=== PATIENT | female | born 1990 | race Caucasian/White ===

== ENCOUNTER 2018-02-24 10:26 | Outpatient (CLI) | END 2018-02-24 13:05 | disposition home or self-care (01) ==

== ENCOUNTER 2018-03-19 20:26 | Outpatient (CLI) | END 2018-03-19 23:13 | disposition home or self-care (01) ==

== ENCOUNTER 2018-06-22 22:28 | Outpatient (CLI) | END 2018-06-23 03:02 | disposition home or self-care (01) ==

== ENCOUNTER 2018-06-23 12:12 | Inpatient (IN) | END 2018-06-26 18:20 | disposition home or self-care (01) | DRG 766 ==

== ENCOUNTER 2018-09-27 01:07 | Emergency (ER) | END 2018-09-27 03:41 | disposition home or self-care (01) ==